=== PATIENT | female | born 2000 | race American Indian/Alaskan Native ===

== ENCOUNTER 2018-03-25 21:05 | Inpatient (IN) | payer BC, MEDICAID ==
[2018-03-25 23:19] LABS: Bilirubin,Urine NEG (Negative); Blood,Urine NEG (Negative); Color,Urine Yellow (Yellow); Mucus,Urine FEW /HPF; Protein,Urine <15 mg/dL mg/dL (Negative); Urobilinogen,Urine < 2.0 mg/dL (<2.0)
[2018-03-26] MEDS ORDERED: LACTATED RINGERS 1,000 ML IV ONE (00:22)
--- NOTE | 2018-03-26 01:36 | Ultrasound Report ---
FINAL REPORT EXAM: US OB BPP WO NON-STRESS HISTORY: Category 2 tracing TECHNIQUE: Transabdominal sonographic evaluation was performed of the gravid female pelvis with and without color Doppler imaging. Non-stress test was performed. PRIORS: None. FINDINGS: A single, intrauterine is present in cephalic presentation. Positive heart rate is identified at 155 beats per minute. There is several, cystic structures noted below the hemidiaphragm measuring up to 2.4 cm likely represented prominent loops of bowel. Average age by ultrasound criteria 33 weeks 0 days. Measurements: Last menstrual period: 06/21/2017. Tone: 2/2 breathin/2 movement: 2/2 Amniotic Fluid: 2/2 (20.7 Cm3) heart rate: 157 beats per minute IMPRESSION: Biophysical profile (12/14). breathing movements were absent or no episode of > /= 30 sec.
--- NOTE | 2018-03-26 01:40 | Ultrasound Report ---
FINAL REPORT EXAM: US OB LIMITED HISTORY: Category 2 tracing. TECHNIQUE: Transabdominal sonographic evaluation was performed of the gravid female pelvis with and without color Doppler imaging. Non-stress test was performed. PRIORS: None. FINDINGS: A single, intrauterine is present in cephalic presentation. Positive heart rate is identified at 155 beats per minute. There is several, cystic structures noted below the hemidiaphragm measuring up to 2.4 cm likely represented prominent loops of bowel. Average age by ultrasound criteria 33 weeks 0 days. Measurements: Last menstrual.: 08/06/2017. Tone: 2/2 breathing movements: 0/2 movement: 2/2 Amniotic Fluid: 2/2 (20.7 cm3) heart rate: 157 beats per minute IMPRESSION: Biophysical profile (12/14), no breathing movements were identified > /=30 seconds in 30 minutes.
[2018-03-26 02:14] LABS: Hematocrit 42.4 % (30.3-42.9); Hemoglobin 14.3 gm/dl (10.1-14.3); Mean Corpuscular HGB Conc 34 % (30-34); Mean Corpuscular Hemoglobin 30 pg (28-32); Mean Corpuscular Volume 88 fl (79-97); Platelet Count 163 K/mm3 (140-440); Red Blood Count 4.84 M/mm3 (3.65-5.03); Red Cell Distribution Width 12.3 % (13.2-15.2)
[2018-03-26] MEDS: PITOCin/NS 30 UNIT/500ML 30 UNITS/500 ML BAG IV SCH ×2 (02:24→07:51)
--- NOTE | 2018-03-26 03:22 | History and Physical Report ---
History of Present Illness Date of examination: 03/26/18 (Pt to Triage with c/o ctx) Date of admission: 03/26/18 01:13 History of present illness: Pt presented to Triage with c/o ctx. During monitoring there was a deep variable. BPP and AURE ordered BPP 12/14 AURE 5 SVE 2,70, -2 Decision to admit and augment. EDC Confirmation: 03/28/2018 Gestational Age: 9 4/7 weeks Past History : 1 Term Births: 0 Premature Births: 0 Living Children: 0 Para: 0 Mult. Births: 0 Prev : 0 Prev. attempt? 0 Aborta: 0 Elect. Ab: 0 Spont. Ab: 0 Ectopics: 0 Past Medical History: Asthma Past Surgical History: Tonsillectomy Family History Summary: Other family member - Has No Family History of Ovarvian Cancer - Entered On: Other family member - Has No Family History of Colon Cancer - Entered On: 2017 Other family member - Has No Family History of Breast Cancer - Entered On: 2017 Other family member - Has Family History of Hypertension - Entered On: 08/27/2017 Other family member - Has Family History of Diabetes - Entered On: 08/27/2017 Other family member - Has Family History of Arthritis - Entered On: 08/27/2017 Social History: Patient is single Karen Risk Factors: Smoked Tobacco Use: Never smoker HIV high-risk behavior: low risk Past Medical History Surgery (Non-insurance follow up rep): Tonsillectomy Abnormal PAP: negative LUIS ALFREDO Exposure: negative Infertility: negative Uterine Anomaly: negative Uterine Surgery (not C/S): negative Other Gynecologic Problems: negative Social Hx: Patient is single Karen Infection History Hx of STD: none HIV Risk Eval: low risk Hepatitis B Risk Eval: low risk Personal hx. of genital herpes: no Genetic History Congenital Heart Defect: Mom: no Dad: no Jenae Disease: Mom: no Dad: no Thalassemia Mom: no Dad: no Neural Tube Defect Mom: no Dad: no Down's Syndrome Mom: no Dad: no Al-Sachs Mom: no Dad: no Sickle Cell Disease/Trait Mom: no Dad: no Hemophilia Mom: no Dad: no Muscular Dystrophy Mom: no Dad: no Cystic Fibrosis Mom: no Dad: no Gaston Chorea Mom: no Dad: no Mental Retardation Mom: no Dad: no Fragile X Mom: no Dad: no Other Genetic/Chromosomal Disorder Mom: no Dad: no Child w/other defect Mom: no Dad: no Enviromental Exposures Xray Exposure: no Medication, drug, or alcohol use since LMP: no Chemical/Other Exposure: no Exposure to Cat Liter: no Hx of Parvovirus (Fifth Disease): no Active Medications (reviewed today): FORMULA 27-1 MG ORAL TABLET ( VIT-FE FUMARATE-FA) 1 po q day as directed Current Allergies (reviewed today): No known allergies Past History - Obstetrical History Expected Date of Delivery: 03/28/18 Actual Gestation: 39 Week(s) 5 Day(s) : 1 Para: 0 Hx # Term Pregnancies: 0 Number of Pregnancies: 0 Spontaneous Abortions: 0 Induced : 0 Number of Living Children: 0 Medications and Allergies Allergies Allergy/AdvReac Type Severity Reaction Status Date / Time No Known Allergies Allergy Verified 03/26/18 00:26 Home Medications Medication Instructions Recorded Confirmed Last Taken Type No Known Home Medications [No 03/26/18 03/26/18 Unknown History Reported Home Medications] Active Meds: Active Medications Oxytocin/Sodium Chloride (Pitocin/Ns 30 Unit/500ml) 30 units in 500 mls @ 2 mls /hr IV TITR ARCELIA; Protocol Last Admin: 03/26/18 02:24 Dose: 2 ml/hr, 2 mls/hr - Vital Signs Vital signs: Vital Signs Temp Pulse Resp BP 98.2 F 82 18 107/61 03/25/18 21:41 03/25/18 21:41 03/25/18 21:41 03/25/18 21:41 Temp Pulse Resp BP Pulse Ox 98.2 F 117 H 20 118/66 98 03/26/18 01:30 03/26/18 03:17 03/26/18 01:30 03/26/18 00:58 03/26/18 03:17 - Physical Exam Breasts: Positive: deferred Cardiovascular: Regular rate, Normal S1, Normal S2 Lungs: Positive: Normal air movement Abdomen: Positive: normal appearance, soft, normal bowel sounds. Negative: distention, tenderness Genitourinary (Female): Positive: normal external genitalia Vulva: both: normal Vagina: Positive: normal moisture. Negative: discharge Cervix: Negative: lesion, discharge Uterus: Positive: normal size, normal contour Adnexa: both: normal Anus/Rectum: Positive: normal perianal skin, heme negative. Negative: rectal mass, hemorrhoids Extremities: Deep Tendon Reflex Grade: Normal +2 - Obstetrical Uterine Contraction Monitor Mode: External Cervical Dilatation: 3 Cervical Effacement Percentage: 70 station: -2 Uterine Contraction Pattern: Regular Uterine Tone Measurement Phase: Resting Uterine Contraction Intensity: Mild Results Result Diagrams: 03/26/18 01:45 Abnormal lab results 03/25/18 03/26/18 Range/Units 21:19 01:45 RDW 12.3 L (13.2-15.2) % Urine WBC (Auto) 11.0 H (0.0-6.0) /HPF All other labs normal. GBS Positive HBsAg Screen Negative Negative *1 RPR Non Reactive Non Reactive *2 Rubella Antibodies, IgG 1.18 index Immune >0.99 *3 Non-immune <0.90 Equivocal 0.90 - 0.99 Immune >0.99 ABO Grouping O *4 Rh Factor Negative *5 Please note: Prior records for this patient's ABO / Rh type are not available for additional verification. Antibody Screen Negative Negative *6 WBC 7.6 x10E3/uL 3.4-10.8 *7 RBC 4.57 x10E6/uL 3.77-5.28 *8 Hemoglobin 13.0 g/dL 11.1-15.9 *9 Hematocrit 38.6 % 34.0-46.6 *10 MCV 85 fL 79-97 *11 MCH 28.4 pg 26.6-33.0 *12 MCHC 33.7 g/dL 31.5-35.7 *13 RDW 13.9 % 12.3-15.4 *14 Platelets 210 x10E3/uL 150-379 *15 Neutrophils 60 % Not Estab. *16 Lymphs 31 % Not Estab. *17 Monocytes 9 % Not Estab. *18 Eos 0 % Not Estab. *19 Basos 0 % Not Estab. *20 ! Immature Cells <No Reported Value> *21 Neutrophils (Absolute) 4.5 x10E3/uL 1.4-7.0 *22 Lymphs (Absolute) 2.4 x10E3/uL 0.7-3.1 *23 Monocytes(Absolute) 0.7 x10E3/uL 0.1-0.9 *24 Eos (Absolute) 0.0 x10E3/uL 0.0-0.4 *25 Baso (Absolute) 0.0 x10E3/uL 0.0-0.2 *26 ! Immature Granulocytes 0 % Not Estab. *27 ! Immature Grans (Abs) 0.0 x10E3/uL 0.0-0.1 *28 ! NRBC <No Reported Value> *29 Hematology Comments: <No Reported Value> *30 Tests: (2) Chlamydia/GC Amplification (781604) Chlamydia trachomatis, BRY Negative Negative *31 Neisseria gonorrhoeae, BRY Negative Negative *32 Tests: (3) Panel 631718 ([id number]) HIV Screen 4th Generation wRfx Non Reactive Non Reactive *33 Tests: (4) HCV Ab w/Rflx to Verification (686905) ! HCV Ab <0.1 s/co ratio 0.0-0.9 *34 Tests: (5) Comment: (071540) ! Comment: SPRCS *35 Non reactive HCV antibody screen is consistent with no HCV infection, unless recent infection is suspected or other evidence exists to indicate HCV infection. Tests: (6) Urine Culture, Routine (377808) Urine Culture, Routine Final report *36 Tests: (7) Result (353231) ! Result 1 No growth *37 Assessment and Plan Pt presented to Triage with c/o ctx. During monitoring there was a deep variable. BPP and AURE ordered BPP 12/14 AURE 5 SVE 2,70, -2 Decision to admit and augment. aware 18yo @ 39 weeks in early labor with oligo GBS+ Orders in EMR
[2018-03-26] MEDS ORDERED: BRETHINE ONE (03:50)
[2018-03-26] MEDS ORDERED: LACTATED RINGERS 1,000 ML ONE ×2 (03:51→04:59)
[2018-03-26] MEDS ORDERED: NARCAN 2 MG/2 ML IV PRN (04:02)
[2018-03-26] MEDS ORDERED: BRETHINE SUB-Q ONE (04:07)
--- NOTE | 2018-03-26 04:07 | Progress Note ---
Assessment and Plan Pt on left side SVE 4,70,0 Variable resolved. Pit off. IVFs for epidural bolus Subjective - Subjective Date of service: 03/26/18 (called urgently to room) Interval history: Pt presented to Triage with c/o ctx. During monitoring there was a deep variable. BPP and AURE ordered BPP / AURE 5 SVE 2,70, -2 Decision to admit and augment. Patient reports: movement normal Objective - Vital Signs Vital Signs: Vital Signs - 12hr 03/25/18 03/26/18 03/26/18 21:41 00:39 00:44 Temperature 98.2 F Pulse Rate 82 87 92 H Respiratory 18 Rate Blood Pressure 107/61 Blood Pressure 107/61 [Left] O2 Sat by Pulse 99 98 Oximetry 03/26/18 03/26/18 03/26/18 00:49 00:57 00:58 Temperature Pulse Rate 123 H 107 H 104 H Respiratory Rate Blood Pressure 118/66 Blood Pressure [Left] O2 Sat by Pulse 97 99 Oximetry 03/26/18 03/26/18 03/26/18 01:02 01:07 01:12 Temperature Pulse Rate 96 H 84 91 H Respiratory Rate Blood Pressure Blood Pressure [Left] O2 Sat by Pulse 97 96 97 Oximetry 03/26/18 03/26/18 03/26/18 01:17 01:22 01:27 Temperature Pulse Rate 93 H 91 H 98 H Respiratory Rate Blood Pressure Blood Pressure [Left] O2 Sat by Pulse 98 98 97 Oximetry 03/26/18 03/26/18 03/26/18 01:30 01:32 01:37 Temperature 98.2 F Pulse Rate 108 H 96 H Respiratory 20 Rate Blood Pressure Blood Pressure [Left] O2 Sat by Pulse 96 98 Oximetry 03/26/18 03/26/18 03/26/18 01:42 01:47 01:52 Temperature Pulse Rate 95 H 96 H 108 H Respiratory Rate Blood Pressure Blood Pressure [Left] O2 Sat by Pulse 98 97 99 Oximetry 03/26/18 03/26/18 03/26/18 01:57 02:02 02:07 Temperature Pulse Rate 103 H 95 H 93 H Respiratory Rate Blood Pressure Blood Pressure [Left] O2 Sat by Pulse 99 97 96 Oximetry 03/26/18 03/26/18 03/26/18 02:12 03:02 03:07 Temperature Pulse Rate 97 H 101 H 100 H Respiratory Rate Blood Pressure Blood Pressure [Left] O2 Sat by Pulse 99 99 97 Oximetry 03/26/18 03/26/18 03/26/18 03:12 03:17 03:22 Temperature Pulse Rate 111 H 117 H 104 H Respiratory Rate Blood Pressure Blood Pressure [Left] O2 Sat by Pulse 100 98 100 Oximetry 03/26/18 03/26/18 03/26/18 03:27 03:32 03:37 Temperature Pulse Rate 111 H 106 H 112 H Respiratory Rate Blood Pressure Blood Pressure [Left] O2 Sat by Pulse 99 99 98 Oximetry 03/26/18 03/26/18 03/26/18 03:42 03:47 03:52 Temperature Pulse Rate 116 H 112 H 114 H Respiratory Rate Blood Pressure Blood Pressure [Left] O2 Sat by Pulse 99 98 98 Oximetry 03/26/18 03:57 Temperature Pulse Rate 128 H Respiratory Rate Blood Pressure Blood Pressure [Left] O2 Sat by Pulse 99 Oximetry - Exam Breasts: deferred Cardiovascular: Regular rate Lungs: Normal air movement Abdomen: Present: normal appearance, soft. Absent: distention, tenderness Uterus: Present: normal FHR: auscultation normal, category 2 (deep variable decel; pitocin off) Uterine Contraction Monitor Mode: Internal Cervical Dilatation: 4 Cervical Effacement Percentage: 70 station: 0 Uterine Contraction Pattern: Regular Uterine Tone Measurement Phase: Resting Uterine Contraction Intensity: Moderate Extremities: normal Deep Tendon Reflex Grade: Normal +2 - Labs Labs: Abnormal Labs 03/25/18 03/26/18 21:19 01:45 RDW 12.3 L Urine WBC (Auto) 11.0 H Laboratory Results - last 24 hr 03/25/18 03/26/18 03/26/18 21:19 01:45 01:45 WBC 9.3 RBC 4.84 Hgb 14.3 Hct 42.4 MCV 88 MCH 30 MCHC 34 RDW 12.3 L Plt Count 163 Urine Color Yellow Urine Turbidity Slightly-cloudy Urine pH 6.0 Ur Specific [place] 1.013 Urine Protein <15 mg/dl Urine Glucose (UA) Neg Urine Ketones Neg Urine Blood Neg Urine Nitrite Neg Urine Bilirubin Neg Urine Urobilinogen < 2.0 Ur Leukocyte Esterase Mod Urine WBC (Auto) 11.0 H Urine RBC (Auto) 2.0 U Epithel Cells (Auto) 6.0 Urine Mucus Few Blood Type O NEGATIVE Antibody Screen Negative
[2018-03-26] MEDS: LACTATED RINGERS 1,000 ML IV SCH ×3 (04:52→07:38)
--- NOTE | 2018-03-26 04:54 | Anesthesia Consultation ---
Anesthesia Consult and Med Hx Date of service: 03/26/18 - Airway Anesthetic Teeth Evaluation: Good ROM Head & Neck: Adequate Mental/Hyoid Distance: Adequate Mallampati Class: Class II Intubation Access Assessment: Probably Good - Pulmonary Exam CTA: Yes - Cardiac Exam Cardiac Exam: RRR - Pre-Operative Health Status ASA Pre-Surgery Classification: ASA2 Proposed Anesthetic Plan: Epidural, Spinal - Pulmonary Hx Asthma: No COPD: No Hx Pneumonia: No - Cardiovascular System Hx Hypertension: No - Central Nervous System Hx Seizures: No Hx Psychiatric Problems: No - Endocrine Hx Renal Disease: No Hx End Stage Renal Disease: No Hx Hypothyroidism: No Hx Hyperthyroidism: No - Hematic Hx Anemia: No Hx Sickle Cell Disease: No - Other Systems Hx Alcohol Use: No
[2018-03-26] MEDS ORDERED: POLYCILLIN/NS 2 GM/100 ML 2 GM/100 ML BAG IV ONE ×2 (04:59)
[2018-03-26] MEDS ORDERED: fentaNYL-BUPIV 2 MCG/ML-0.125% 200 MCG/100 ML BAG EPIDURAL SCH (05:00)
--- NOTE | 2018-03-26 05:22 | Event Note ---
Date: 03/26/18 (comfortable with epidural) SVE 5,90,0 Pit @ 2mu will increase for ctx Re-eval as needed
--- NOTE | 2018-03-26 07:47 | Progress Note ---
Assessment and Plan pt tolerating labor well Comfortable with epidural Pit @ 6mu Anticipate delivery Subjective - Subjective Date of service: 03/26/18 (no c/o voiced) Interval history: Pt presented to Triage with c/o ctx. During monitoring there was a deep variable. BPP and AURE ordered BPP /8 AURE 5 SVE 2,70, -2 Decision to admit and augment. Patient reports: movement normal Objective - Vital Signs Vital Signs: Vital Signs - 12hr 03/25/18 03/26/18 03/26/18 21:41 00:39 00:44 Temperature 98.2 F Pulse Rate 82 87 92 H Respiratory 18 Rate Blood Pressure 107/61 Blood Pressure 107/61 [Left] O2 Sat by Pulse 99 98 Oximetry 03/26/18 03/26/18 03/26/18 00:49 00:57 00:58 Temperature Pulse Rate 123 H 107 H 104 H Respiratory Rate Blood Pressure 118/66 Blood Pressure [Left] O2 Sat by Pulse 97 99 Oximetry 03/26/18 03/26/18 03/26/18 01:02 01:07 01:12 Temperature Pulse Rate 96 H 84 91 H Respiratory Rate Blood Pressure Blood Pressure [Left] O2 Sat by Pulse 97 96 97 Oximetry 03/26/18 03/26/18 03/26/18 01:17 01:22 01:27 Temperature Pulse Rate 93 H 91 H 98 H Respiratory Rate Blood Pressure Blood Pressure [Left] O2 Sat by Pulse 98 98 97 Oximetry 03/26/18 03/26/18 03/26/18 01:30 01:32 01:37 Temperature 98.2 F Pulse Rate 108 H 96 H Respiratory 20 Rate Blood Pressure Blood Pressure [Left] O2 Sat by Pulse 96 98 Oximetry 03/26/18 03/26/18 03/26/18 01:42 01:47 01:52 Temperature Pulse Rate 95 H 96 H 108 H Respiratory Rate Blood Pressure Blood Pressure [Left] O2 Sat by Pulse 98 97 99 Oximetry 03/26/18 03/26/18 03/26/18 01:57 02:02 02:07 Temperature Pulse Rate 103 H 95 H 93 H Respiratory Rate Blood Pressure Blood Pressure [Left] O2 Sat by Pulse 99 97 96 Oximetry 03/26/18 03/26/18 03/26/18 02:12 03:02 03:07 Temperature Pulse Rate 97 H 101 H 100 H Respiratory Rate Blood Pressure Blood Pressure [Left] O2 Sat by Pulse 99 99 97 Oximetry 03/26/18 03/26/18 03/26/18 03:12 03:17 03:22 Temperature Pulse Rate 111 H 117 H 104 H Respiratory Rate Blood Pressure Blood Pressure [Left] O2 Sat by Pulse 100 98 100 Oximetry 03/26/18 03/26/18 03/26/18 03:27 03:32 03:37 Temperature Pulse Rate 111 H 106 H 112 H Respiratory Rate Blood Pressure Blood Pressure [Left] O2 Sat by Pulse 99 99 98 Oximetry 03/26/18 03/26/18 03/26/18 03:42 03:47 03:52 Temperature Pulse Rate 116 H 112 H 114 H Respiratory Rate Blood Pressure Blood Pressure [Left] O2 Sat by Pulse 99 98 98 Oximetry 03/26/18 03/26/18 03/26/18 03:57 04:02 04:07 Temperature Pulse Rate 128 H 141 H 142 H Respiratory Rate Blood Pressure Blood Pressure [Left] O2 Sat by Pulse 99 98 99 Oximetry 03/26/18 03/26/18 03/26/18 04:12 04:17 04:23 Temperature Pulse Rate 149 H 133 H 134 H Respiratory Rate Blood Pressure Blood Pressure [Left] O2 Sat by Pulse 98 98 96 Oximetry 03/26/18 03/26/18 03/26/18 04:28 04:33 04:35 Temperature Pulse Rate 128 H 135 H 131 H Respiratory Rate Blood Pressure 109/59 Blood Pressure [Left] O2 Sat by Pulse 99 99 Oximetry 03/26/18 03/26/18 03/26/18 04:37 04:38 04:39 Temperature Pulse Rate 125 H 125 H 122 H Respiratory Rate Blood Pressure 104/55 119/70 Blood Pressure [Left] O2 Sat by Pulse 98 Oximetry 03/26/18 03/26/18 03/26/18 04:41 04:43 04:44 Temperature Pulse Rate 118 H 132 H 125 H Respiratory Rate Blood Pressure 102/51 103/55 Blood Pressure [Left] O2 Sat by Pulse 96 Oximetry 03/26/18 03/26/18 03/26/18 04:45 04:47 04:48 Temperature Pulse Rate 117 H 109 H 110 H Respiratory Rate Blood Pressure 93/48 92/54 Blood Pressure [Left] O2 Sat by Pulse 98 Oximetry 03/26/18 03/26/1803/26/18 04:49 04:51 04:53 Temperature Pulse Rate 107 H 114 H 121 H Respiratory Rate Blood Pressure 90/46 83/47 93/51 Blood Pressure [Left] O2 Sat by Pulse 97 Oximetry 03/26/18 03/26/18 03/26/18 04:55 04:57 04:58 Temperature Pulse Rate 126 H 125 H 125 H Respiratory Rate Blood Pressure 103/55 112/53 Blood Pressure [Left] O2 Sat by Pulse 98 Oximetry 03/26/18 03/26/18 03/26/18 04:59 05:00 05:01 Temperature 98.6 F Pulse Rate 116 H 114 H Respiratory 18 Rate Blood Pressure 98/51 103/57 Blood Pressure [Left] O2 Sat by Pulse Oximetry 03/26/18 03/26/18 03/26/18 05:03 05:05 05:07 Temperature Pulse Rate 114 H 111 H 111 H Respiratory Rate Blood Pressure 108/58 110/57 111/57 Blood Pressure [Left] O2 Sat by Pulse 98 Oximetry 03/26/18 03/26/18 03/26/18 05:08 05:09 05:11 Temperature Pulse Rate 114 H 115 H 108 H Respiratory Rate Blood Pressure 114/59 110/59 Blood Pressure [Left] O2 Sat by Pulse 98 Oximetry 03/26/18 03/26/18 03/26/18 05:13 05:14 05:15 Temperature Pulse Rate 126 H 111 H 112 H Respiratory Rate Blood Pressure 125/58 114/58 Blood Pressure [Left] O2 Sat by Pulse 98 Oximetry 03/26/18 03/26/18 03/26/18 05:17 05:18 05:22 Temperature Pulse Rate 116 H 109 H 117 H Respiratory Rate Blood Pressure 111/58 Blood Pressure [Left] O2 Sat by Pulse 98 0 L Oximetry 03/26/18 03/26/18 03/26/18 05:23 05:28 05:33 Temperature Pulse Rate 116 H 117 H 116 H Respiratory Rate Blood Pressure 94/53 Blood Pressure [Left] O2 Sat by Pulse 100 100 100 Oximetry 03/26/18 03/26/18 03/26/18 05:38 05:43 05:48 Temperature Pulse Rate 111 H 110 H 102 H Respiratory Rate Blood Pressure Blood Pressure [Left] O2 Sat by Pulse 98 97 97 Oximetry 03/26/18 03/26/18 03/26/18 05:52 05:53 05:58 Temperature Pulse Rate 102 H 104 H 103 H Respiratory Rate Blood Pressure 90/45 Blood Pressure [Left] O2 Sat by Pulse 98 98 Oximetry 03/26/18 03/26/18 03/26/18 06:03 06:06 06:08 Temperature Pulse Rate 118 H 122 H 109 H Respiratory Rate Blood Pressure 128/60 Blood Pressure [Left] O2 Sat by Pulse 100 98 Oximetry 03/26/18 03/26/18 03/26/18 06:13 06:18 06:21 Temperature Pulse Rate 105 H 104 H 101 H Respiratory Rate Blood Pressure 105/52 Blood Pressure [Left] O2 Sat by Pulse 97 96 Oximetry 03/26/18 03/26/18 03/26/18 06:23 06:28 06:33 Temperature Pulse Rate 107 H 101 H 109 H Respiratory Rate Blood Pressure Blood Pressure [Left] O2 Sat by Pulse 96 97 97 Oximetry 03/26/18 03/26/18 03/26/18 06:36 06:38 06:43 Temperature Pulse Rate 105 H 106 H 107 H Respiratory Rate Blood Pressure 101/54 Blood Pressure [Left] O2 Sat by Pulse 98 97 Oximetry 03/26/18 03/26/18 03/26/18 06:48 06:52 06:53 Temperature Pulse Rate 100 H 111 H 112 H Respiratory Rate Blood Pressure 112/55 Blood Pressure [Left] O2 Sat by Pulse 97 99 Oximetry 03/26/18 03/26/18 03/26/18 06:58 07:03 07:06 Temperature Pulse Rate 109 H 110 H 103 H Respiratory Rate Blood Pressure 109/58 Blood Pressure [Left] O2 Sat by Pulse 98 99 Oximetry 03/26/18 03/26/18 03/26/18 07:08 07:13 07:18 Temperature Pulse Rate 109 H 115 H 126 H Respiratory Rate Blood Pressure Blood Pressure [Left] O2 Sat by Pulse 99 99 99 Oximetry 03/26/18 03/26/18 03/26/18 07:22 07:23 07:28 Temperature Pulse Rate 116 H 116 H 118 H Respiratory Rate Blood Pressure 135/63 Blood Pressure [Left] O2 Sat by Pulse 99 98 Oximetry 03/26/18 03/26/18 03/26/18 07:33 07:37 07:38 Temperature Pulse Rate 118 H 105 H 104 H Respiratory 18 Rate Blood Pressure 98/53 Blood Pressure 98/53 [Left] O2 Sat by Pulse 98 97 98 Oximetry 03/26/18 07:43 Temperature Pulse Rate 112 H Respiratory Rate Blood Pressure Blood Pressure [Left] O2 Sat by Pulse 96 Oximetry - Exam Breasts: deferred Cardiovascular: Regular rate Lungs: Normal air movement Abdomen: Present: normal appearance, soft. Absent: distention, tenderness Uterus: Present: normal FHR: auscultation normal, category 1 Uterine Contraction Monitor Mode: Internal Cervical Dilatation: 8 Cervical Effacement Percentage: 100 station: 0 Uterine Contraction Pattern: Regular Uterine Tone Measurement Phase: Resting Uterine Contraction Intensity: Moderate Extremities: normal Deep Tendon Reflex Grade: Normal +2 - Labs Labs: Abnormal Labs 03/25/18 03/26/18 21:19 01:45 RDW 12.3 L Urine WBC (Auto) 11.0 H Laboratory Results - last 24 hr 03/25/18 03/26/18 03/26/18 21:19 01:45 01:45 WBC 9.3 RBC 4.84 Hgb 14.3 Hct 42.4 MCV 88 MCH 30 MCHC 34 RDW 12.3 L Plt Count 163 Urine Color Yellow Urine Turbidity Slightly-cloudy Urine pH 6.0 Ur Specific [place] 1.013 Urine Protein <15 mg/dl Urine Glucose (UA) Neg Urine Ketones Neg Urine Blood Neg Urine Nitrite Neg Urine Bilirubin Neg Urine Urobilinogen < 2.0 Ur Leukocyte Esterase Mod Urine WBC (Auto) 11.0 H Urine RBC (Auto) 2.0 U Epithel Cells (Auto) 6.0 Urine Mucus Few Blood Type O NEGATIVE Antibody Screen Negative
[2018-03-26] MEDS ORDERED: PITOCin/NS 20 UNIT/1000ML DRIP 20,000 MILLIUNITS/1,000 ML BAG IV ONE (07:52)
[2018-03-26] MEDS ORDERED: AMPICILLIN/NS 1 GM/50 ML 1 GM/50 ML BAG IV SCH (09:00)
--- NOTE | 2018-03-26 09:21 | Progress Note ---
Assessment and Plan Will start pushing - Patient Problems (1) 39 weeks gestation of Current Visit: Yes Status: Acute (2) Active labor Current Visit: Yes Status: Acute (3) Group B Streptococcus carrier state affecting Current Visit: Yes Status: Acute Subjective - Subjective Date of service: 03/26/18 Principal diagnosis: Laboring Patient reports: new complaints (rectal pressure), movement normal Objective - Vital Signs Vital Signs: Vital Signs - 12hr 03/25/18 03/26/18 03/26/18 21:41 00:39 00:44 Temperature 98.2 F Pulse Rate 82 87 92 H Respiratory 18 Rate Blood Pressure 107/61 Blood Pressure 107/61 [Left] O2 Sat by Pulse 99 98 Oximetry 03/26/18 03/26/18 03/26/18 00:49 00:57 00:58 Temperature Pulse Rate 123 H 107 H 104 H Respiratory Rate Blood Pressure 118/66 Blood Pressure [Left] O2 Sat by Pulse 97 99 Oximetry 03/26/18 03/26/18 03/26/18 01:02 01:07 01:12 Temperature Pulse Rate 96 H 84 91 H Respiratory Rate Blood Pressure Blood Pressure [Left] O2 Sat by Pulse 97 96 97 Oximetry 03/26/18 03/26/18 03/26/18 01:17 01:22 01:27 Temperature Pulse Rate 93 H 91 H 98 H Respiratory Rate Blood Pressure Blood Pressure [Left] O2 Sat by Pulse 98 98 97 Oximetry 03/26/18 03/26/18 03/26/18 01:30 01:32 01:37 Temperature 98.2 F Pulse Rate 108 H 96 H Respiratory 20 Rate Blood Pressure Blood Pressure [Left] O2 Sat by Pulse 96 98 Oximetry 03/26/18 03/26/18 03/26/18 01:42 01:47 01:52 Temperature Pulse Rate 95 H 96 H 108 H Respiratory Rate Blood Pressure Blood Pressure [Left] O2 Sat by Pulse 98 97 99 Oximetry 03/26/18 03/26/18 03/26/18 01:57 02:02 02:07 Temperature Pulse Rate 103 H 95 H 93 H Respiratory Rate Blood Pressure Blood Pressure [Left] O2 Sat by Pulse 99 97 96 Oximetry 03/26/18 03/26/18 03/26/18 02:12 03:02 03:07 Temperature Pulse Rate 97 H 101 H 100 H Respiratory Rate Blood Pressure Blood Pressure [Left] O2 Sat by Pulse 99 99 97 Oximetry 03/26/18 03/26/18 03/26/18 03:12 03:17 03:22 Temperature Pulse Rate 111 H 117 H 104 H Respiratory Rate Blood Pressure Blood Pressure [Left] O2 Sat by Pulse 100 98 100 Oximetry 03/26/18 03/26/18 03/26/18 03:27 03:32 03:37 Temperature Pulse Rate 111 H 106 H 112 H Respiratory Rate Blood Pressure Blood Pressure [Left] O2 Sat by Pulse 99 99 98 Oximetry 03/26/18 03/26/18 03/26/18 03:42 03:47 03:52 Temperature Pulse Rate 116 H 112 H 114 H Respiratory Rate Blood Pressure Blood Pressure [Left] O2 Sat by Pulse 99 98 98 Oximetry 03/26/18 03/26/18 03/26/18 03:57 04:02 04:07 Temperature Pulse Rate 128 H 141 H 142 H Respiratory Rate Blood Pressure Blood Pressure [Left] O2 Sat by Pulse 99 98 99 Oximetry 03/26/18 03/26/18 03/26/18 04:12 04:17 04:23 Temperature Pulse Rate 149 H 133 H 134 H Respiratory Rate Blood Pressure Blood Pressure [Left] O2 Sat by Pulse 98 98 96 Oximetry 03/26/18 03/26/18 03/26/18 04:28 04:33 04:35 Temperature Pulse Rate 128 H 135 H 131 H Respiratory Rate Blood Pressure 109/59 Blood Pressure [Left] O2 Sat by Pulse 99 99 Oximetry 03/26/18 03/26/18 03/26/18 04:37 04:38 04:39 Temperature Pulse Rate 125 H 125 H 122 H Respiratory Rate Blood Pressure 104/55 119/70 Blood Pressure [Left] O2 Sat by Pulse 98 Oximetry 03/26/18 03/26/18 03/26/18 04:41 04:43 04:44 Temperature Pulse Rate 118 H 132 H 125 H Respiratory Rate Blood Pressure 102/51 103/55 Blood Pressure [Left] O2 Sat by Pulse 96 Oximetry 03/26/18 03/26/18 03/26/18 04:45 04:47 04:48 Temperature Pulse Rate 117 H 109 H 110 H Respiratory Rate Blood Pressure 93/48 92/54 Blood Pressure [Left] O2 Sat by Pulse 98 Oximetry 03/26/18 03/26/18 03/26/18 04:49 04:51 04:53 Temperature Pulse Rate 107 H 114 H 121 H Respiratory Rate Blood Pressure 90/46 83/47 93/51 Blood Pressure [Left] O2 Sat by Pulse 97 Oximetry 03/26/18 03/26/18 03/26/18 04:55 04:57 04:58 Temperature Pulse Rate 126 H 125 H 125 H Respiratory Rate Blood Pressure 103/55 112/53 Blood Pressure [Left] O2 Sat by Pulse 98 Oximetry 03/26/18 03/26/18 03/26/18 04:59 05:00 05:01 Temperature 98.6 F Pulse Rate 116 H 114 H Respiratory 18 Rate Blood Pressure 98/51 103/57 Blood Pressure [Left] O2 Sat by Pulse Oximetry 03/26/18 03/26/18 03/26/18 05:03 05:05 05:07 Temperature Pulse Rate 114 H 111 H 111 H Respiratory Rate Blood Pressure 108/58 110/57 111/57 Blood Pressure [Left] O2 Sat by Pulse 98 Oximetry 03/26/18 03/26/18 03/26/18 05:08 05:09 05:11 Temperature Pulse Rate 114 H 115 H 108 H Respiratory Rate Blood Pressure 114/59 110/59 Blood Pressure [Left] O2 Sat by Pulse 98 Oximetry 03/26/18 03/26/18 03/26/18 05:13 05:14 05:15 Temperature Pulse Rate 126 H 111 H 112 H Respiratory Rate Blood Pressure 125/58 114/58 Blood Pressure [Left] O2 Sat by Pulse 98 Oximetry 03/26/18 03/26/18 03/26/18 05:17 05:18 05:22 Temperature Pulse Rate 116 H 109 H 117 H Respiratory Rate Blood Pressure 111/58 Blood Pressure [Left] O2 Sat by Pulse 98 0 L Oximetry 03/26/18 03/26/18 03/26/18 05:23 05:28 05:33 Temperature Pulse Rate 116 H 117 H 116 H Respiratory Rate Blood Pressure 94/53 Blood Pressure [Left] O2 Sat by Pulse 100 100 100 Oximetry 03/26/18 03/26/18 03/26/18 05:38 05:43 05:48 Temperature Pulse Rate 111 H 110 H 102 H Respiratory Rate Blood Pressure Blood Pressure [Left] O2 Sat by Pulse 98 97 97 Oximetry 03/26/18 03/26/18 03/26/18 05:52 05:53 05:58 Temperature Pulse Rate 102 H 104 H 103 H Respiratory Rate Blood Pressure 90/45 Blood Pressure [Left] O2 Sat by Pulse 98 98 Oximetry 03/26/18 03/26/18 03/26/18 06:03 06:06 06:08 Temperature Pulse Rate 118 H 122 H 109 H Respiratory Rate Blood Pressure 128/60 Blood Pressure [Left] O2 Sat by Pulse 100 98 Oximetry 03/26/18 03/26/18 03/26/18 06:13 06:18 06:21 Temperature Pulse Rate 105 H 104 H 101 H Respiratory Rate Blood Pressure 105/52 Blood Pressure [Left] O2 Sat by Pulse 97 96 Oximetry 03/26/18 03/26/18 03/26/18 06:23 06:28 06:33 Temperature Pulse Rate 107 H 101 H 109 H Respiratory Rate Blood Pressure Blood Pressure [Left] O2 Sat by Pulse 96 97 97 Oximetry 03/26/18 03/26/18 03/26/18 06:36 06:38 06:43 Temperature Pulse Rate 105 H 106 H 107 H Respiratory Rate Blood Pressure 101/54 Blood Pressure [Left] O2 Sat by Pulse 98 97 Oximetry 03/26/18 03/26/18 03/26/18 06:48 06:52 06:53 Temperature Pulse Rate 100 H 111 H 112 H Respiratory Rate Blood Pressure 112/55 Blood Pressure [Left] O2 Sat by Pulse 97 99 Oximetry 03/26/18 03/26/18 03/26/18 06:58 07:03 07:06 Temperature Pulse Rate 109 H 110 H 103 H Respiratory Rate Blood Pressure 109/58 Blood Pressure [Left] O2 Sat by Pulse 98 99 Oximetry 03/26/18 03/26/18 03/26/18 07:08 07:13 07:18 Temperature Pulse Rate 109 H 115 H 126 H Respiratory Rate Blood Pressure Blood Pressure [Left] O2 Sat by Pulse 99 99 99 Oximetry 03/26/18 03/26/18 03/26/18 07:22 07:23 07:28 Temperature Pulse Rate 116 H 116 H 118 H Respiratory Rate Blood Pressure 135/63 Blood Pressure [Left] O2 Sat by Pulse 99 98 Oximetry 03/26/18 03/26/18 03/26/18 07:33 07:37 07:38 Temperature Pulse Rate 118 H 105 H 104 H Respiratory 18 Rate Blood Pressure 98/53 Blood Pressure 98/53 [Left] O2 Sat by Pulse 98 97 98 Oximetry 03/26/18 03/26/18 03/26/18 07:43 07:48 07:51 Temperature Pulse Rate 112 H 101 H 112 H Respiratory Rate Blood Pressure 92/53 Blood Pressure [Left] O2 Sat by Pulse 96 96 Oximetry 03/26/18 03/26/18 03/26/18 07:53 07:58 08:03 Temperature Pulse Rate 106 H 99 H 100 H Respiratory Rate Blood Pressure Blood Pressure [Left] O2 Sat by Pulse 97 96 96 Oximetry 03/26/18 03/26/18 03/26/18 08:06 08:08 08:13 Temperature Pulse Rate 105 H 105 H 105 H Respiratory Rate Blood Pressure 86/47 Blood Pressure [Left] O2 Sat by Pulse 96 96 Oximetry 03/26/18 03/26/18 03/26/18 08:18 08:21 08:23 Temperature Pulse Rate 106 H 100 H 99 H Respiratory Rate Blood Pressure 86/50 Blood Pressure [Left] O2 Sat by Pulse 97 96 Oximetry 03/26/18 03/26/18 03/26/18 08:28 08:33 08:38 Temperature Pulse Rate 103 H 99 H 108 H Respiratory Rate Blood Pressure 97/50 Blood Pressure [Left] O2 Sat by Pulse 96 97 100 Oximetry 03/26/18 03/26/18 03/26/18 08:43 08:48 08:52 Temperature Pulse Rate 109 H 121 H 126 H Respiratory Rate Blood Pressure 124/69 Blood Pressure [Left] O2 Sat by Pulse 98 99 Oximetry 03/26/18 08:53 Temperature Pulse Rate 142 H Respiratory Rate Blood Pressure Blood Pressure [Left] O2 Sat by Pulse 99 Oximetry - Exam Breasts: normal Cardiovascular: Regular rate Lungs: Clear to auscultation, Normal air movement Abdomen: Present: normal appearance, soft Vulva: both: normal Uterus: Present: normal FHR: category 2 Cervical Dilatation: 10 Cervical Effacement Percentage: 100 station: +2 Uterine Contraction Frequency (min): 2-3 Uterine Contraction Pattern: Regular Uterine Tone Measurement Phase: Contraction Uterine Contraction Intensity: Strong/Firm Extremities: normal - Labs Labs: Abnormal Labs 03/25/18 03/26/18 21:19 01:45 RDW 12.3 L Urine WBC (Auto) 11.0 H Laboratory Results - last 24 hr 09/03/26/18 03/26/18 21:19 01:45 01:45 WBC 9.3 RBC 4.84 Hgb 14.3 Hct 42.4 MCV 88 MCH 30 MCHC 34 RDW 12.3 L Plt Count 163 Urine Color Yellow Urine Turbidity Slightly-cloudy Urine pH 6.0 Ur Specific [place] 1.013 Urine Protein <15 mg/dl Urine Glucose (UA) Neg Urine Ketones Neg Urine Blood Neg Urine Nitrite Neg Urine Bilirubin Neg Urine Urobilinogen < 2.0 Ur Leukocyte Esterase Mod Urine WBC (Auto) 11.0 H Urine RBC (Auto) 2.0 U Epithel Cells (Auto) 6.0 Urine Mucus Few Blood Type O NEGATIVE Antibody Screen Negative
--- NOTE | 2018-03-26 09:57 | Event Note ---
Date: 03/26/18 FHT does not tolerating pushing at this time, baby is OP and patient has heavy epidural. epidural infusion reduced by half, patient turned to RLP with left leg placed in stirrup. Will allow time to labor down further.
--- NOTE | 2018-03-26 11:06 | Procedure Note ---
OB Delivery Note - Delivery Date of Delivery: 03/26/18 ( Female) Janitor Head: AKIL BATISTA Estimated blood loss: 200cc - Vaginal Delivery presentation: vertex Delivery position: OA (long arc, restituted to OP) Intrapartum events: other(please specify) (oligo, BPP 12/14) Delivery induction: oxytocin Delivery augmentation: rupture of membranes, pitocin Delivery monitor: internal FHT, internal uterine Route of delivery: Delivery placenta: spontaneous Delivery cord: 3 umbilical vessels Episiotomy: none Delivery laceration: none Anesthesia: epidural Delivery comments: Female infant del over intact perineum, placed skin to skin, 3 vessel clamped and cut, cord blood collected. Placenta del intact and complete. Pit to IVF. no lacerations repair. EBL 200, apgars 8/9. Mother and remain LDR stable. - A at 1 minute: 8 at 5 minutes: 9 Infant Gender: Female
[2018-03-26] MEDS ORDERED: ZOFRAN IV PRN (14:21)
[2018-03-26] MEDS ORDERED: TYLENOL PO PRN (14:21)
[2018-03-26] MEDS ORDERED: LANSINOH TP PRN (14:21)
[2018-03-26] MEDS ORDERED: BENADRYL PO PRN (14:21)
[2018-03-26] MEDS ORDERED: MILK OF MAGNESIA PO PRN (14:21)
[2018-03-26] MEDS ORDERED: PHENERGAN PO PRN (14:21)
[2018-03-26] MEDS ORDERED: TUCKS PAD TP PRN (14:21)
[2018-03-26] MEDS ORDERED: SODIUM CHLORIDE FLUSH SYRINGE 10 ML IV NR (14:21)
[2018-03-26] MEDS ORDERED: DULCOLAX PR PRN (14:21)
[2018-03-26] MEDS: MOTRIN PO SCH ×2 (16:38→23:15)
[2018-03-26 23:04] LABS: Hematocrit 36.5 % (30.3-42.9); Hemoglobin 12.2 gm/dl (10.1-14.3)
[2018-03-27] MEDS: MOTRIN PO SCH ×2 (05:17→12:22)
--- NOTE | 2018-03-27 07:15 | Discharge Summary ---
Providers - Providers Date of Admission: 03/26/18 01:13 Date of discharge: 03/27/18 (pt requesting d/c) Attending physician: LEIGH RYAN Primary care physician: LEIGH RYAN Hospitalization Reason for admission: active labor, other (BPP 6/8 AURE 5) Delivery: Episiotomy: none Laceration: none Incision: normal Other procedures: none complications: none Discharge diagnosis: IUP at term delivered baby: female Hospital course: uncomplicated vaginal delivery Pt w/o complaint VSS FF below umb Lochia small Perineum intact H&H stable Asymptomatic anemia. Doing well s/p vag delivery P: d/c today with instructions RTO 4 weeks PP care. Condition at discharge: Good Disposition: DC-01 TO HOME OR SELFCARE - Discharge Diagnoses (1) (normal spontaneous vaginal delivery) Status: Acute Comment: RTO 4 weeks PP care Plan - Provider Discharge Summary Activity: routine, no sex for 6 weeks, no heavy lifting 4 weeks, no strenuous exercise Diet: routine Instructions: routine Additional instructions: [] Smoking cessation referral if applicable(refer to patient education folder for contact #) [] Refer to [employer] Booklet Call your doctor immediately for: * Fever > 100.5 * Heavy vaginal bleeding ( >1 pad per hour) * Severe persistent headache * Shortness of breath * Reddened, hot, painful area to leg or breast * Drainage or odor from incision. * Keep incision clean and dry at all times and follow doctor's instructions regarding bathing/showering - Follow up plan Follow up: LEIGH RYAN MD [Primary Care Provider] - 04/25/18 (Congratulations! Please call [phone] to schedule your care in 4 weeks. Take Motrin for any cramping, Tylenol for headache. Call with concerns.)
[2018-03-27] MEDS ORDERED: PRENATAL VITAMIN PO SCH (10:00)
[2018-03-27] MEDS ORDERED: BOOSTRIX IM ONE (10:59)
[2018-03-27 17:59] VITALS: BP 114/71
== END 2018-03-27 15:58 | disposition home or self-care (01) | DRG 775 ==
LOC: TRG 21:05 → LD 03-26 01:13 → OB 03-26 12:55
PROVIDERS: ADMIT Obstetrics & Gynecology; ATTEND Obstetrics & Gynecology
PROC: 10E0XZZ Delivery of Products of Conception, External Approach (ICD-10-PCS; principal; 2018-03-26)
PROC: 3E033VJ Introduction of Other Hormone into Peripheral Vein, Percutaneous Approach (ICD-10-PCS; 2018-03-26)
PROC: 3E0R3BZ Introduction of Anesthetic Agent into Spinal Canal, Percutaneous Approach (ICD-10-PCS; 2018-03-26)
PROC: 00HU33Z Insertion of Infusion Device into Spinal Canal, Percutaneous Approach (ICD-10-PCS; 2018-03-26)
PROC: 3E0234Z Introduction of Serum, Toxoid and Vaccine into Muscle, Percutaneous Approach (ICD-10-PCS; 2018-03-27)
DX: O41.03X0 Oligohydramnios, third trimester, not applicable or unspecified (principal); O99.824 Streptococcus B carrier state complicating childbirth; Z3A.39 39 weeks gestation of pregnancy; Z37.0 Single live birth; Z23 Encounter for immunization; O99.02 Anemia complicating childbirth; D64.9 Anemia, unspecified
CPT/HCPCS: 36415; 76815; 76819; 81001; 85014; 85018; 85027; 86592; 86850; 86900; 86901; 99211; A6250; G0463; J0290; J2590; J3105; J7120

== ENCOUNTER 2020-07-27 13:43 | Emergency (ER) | payer BC ==
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
[2020-07-27] MEDS ORDERED: LIDOCAINE-MPF (1%) 10 MG/1 ML VIAL 5 ML INFILTRATI ONE (17:17)
[2020-07-27 18:21] LABS: Bilirubin,Urine NEG (Negative); Blood,Urine SM (Negative); Color,Urine Yellow (Yellow); Mucus,Urine FEW /HPF; Protein,Urine <15 mg/dL mg/dL (Negative); Urobilinogen,Urine < 2.0 mg/dL (<2.0)
[2020-07-27 18:30] LABS: HCG Qualitative,Urine Negative (Negative)
[2020-07-27 19:28] VITALS: BP 138/77
== END 2020-07-27 19:28 | disposition home or self-care (01) ==
LOC: ED 13:43
DX: N76.0 Acute vaginitis (principal); R10.2 Pelvic and perineal pain; K62.89 Other specified diseases of anus and rectum; B96.89 Other specified bacterial agents as the cause of diseases classified elsewhere; Z79.899 Other long term (current) drug therapy
CPT/HCPCS: 81001; 81025; 87210; 87591; 96372; 99283; J0696

== ENCOUNTER 2021-03-19 10:42 | Emergency (ER) | payer BC ==
[2021-03-19 12:35] VITALS: BP 143/76
[2021-03-19] MEDS ORDERED: ACETAMINOPHEN 325 MG TAB PO ONE (14:50)
[2021-03-19] MEDS ORDERED: dexAMETHasone 20 MG/5 ML VIAL IM ONE (14:50)
[2021-03-19] MEDS ORDERED: IPRATROPIUM/ALBUTEROL SULFATE 3 ML AMPUL.NEB IH ONE (14:50)
--- NOTE | 2021-03-19 15:15 | Emergency Department Report ---
- General Chief Complaint: Upper Respiratory Infection Stated Complaint: HEARING LOSS/EAR PAIN Time Seen by Provider: 03/19/21 14:49 Source: patient Mode of arrival: Ambulatory Limitations: No Limitations - History of Present Illness Initial Comments: Patient is a 21-year-old female presents emergency room complaints of URI symptoms that began 2 weeks ago. She has associated bilateral ear pain, muffled hearing, sinus pressure, congestion, rhinorrhea, cough, shortness of breath, wheezing, sore throat. She states that she got tested for COVID-19 and reports it was negative. She states that her daughter is sick and was diagnosed with strep throat. She denies any chest pain, nausea, vomiting, diarrhea past medical history of asthma and herpes. She states that she has been using her inhaler. No allergies to medications. She is currently on her menstrual cycle. - Related Data Previous Rx's Medication Instructions Recorded Last Taken Type predniSONE [Deltasone] 40 mg PO QDAY 5 Days #10 tab 01/08/20 Unknown Rx Acyclovir 400 mg PO Q8H #21 tablet 07/27/20 Unknown Rx Doxycycline Hyclate [Doxycycline 100 mg PO Q12HR #14 tab 07/27/20 Unknown Rx Hyclate TAB] metroNIDAZOLE [Flagyl] 500 mg PO Q12HR #14 tab 07/27/20 Unknown Rx Albuterol Sulfate [Proventil Hfa] 1 - 2 puff IH TID PRN #1 hfa.aer.ad 03/19/21 Unknown Rx Amoxicillin/Potassium Clav 1 each PO BID 10 Days #20 tablet 03/19/21 Unknown Rx [Augmentin 875-125 Tablet] Azithromycin [Zithromax] 250 mg PO QDAY 5 Days #6 tablet 03/19/21 Unknown Rx predniSONE [Deltasone] 40 mg PO DAILY 5 Days #10 tablet 03/19/21 Unknown Rx Allergies Allergy/AdvReac Type Severity Reaction Status Date / Time No Known Allergies Allergy Verified 03/19/21 12:35 ED Review of Systems ROS: Stated complaint: HEARING LOSS/EAR PAIN Other details as noted in HPI Comment: All other systems reviewed and negative ED Past Medical Hx - Past Medical History Hx Hypertension: No Hx Congestive Heart Failure: No Hx Diabetes: No Hx Deep Vein Thrombosis: No Hx Renal Disease: No Hx Sickle Cell Disease: No Hx Seizures: No Hx Asthma: No Hx COPD: No Hx HIV: No Additional medical history: HPV - Social History Smoking Status: Never Smoker Substance Use Type: None - Medications Home Medications: Home Medications Medication Instructions Recorded Confirmed Last Taken Type predniSONE [Deltasone] 40 mg PO QDAY 5 Days #10 tab 01/08/20 Unknown Rx Acyclovir 400 mg PO Q8H #21 tablet 07/27/20 Unknown Rx Doxycycline Hyclate [Doxycycline 100 mg PO Q12HR #14 tab 07/27/20 Unknown Rx Hyclate TAB] metroNIDAZOLE [Flagyl] 500 mg PO Q12HR #14 tab 07/27/20 Unknown Rx Albuterol Sulfate [Proventil Hfa] 1 - 2 puff IH TID PRN #1 hfa.aer.ad 03/19/21 Unknown Rx Amoxicillin/Potassium Clav 1 each PO BID 10 Days #20 tablet 03/19/21 Unknown Rx [Augmentin 875-125 Tablet] Azithromycin [Zithromax] 250 mg PO QDAY 5 Days #6 tablet 03/19/21 Unknown Rx predniSONE [Deltasone] 40 mg PO DAILY 5 Days #10 tablet 03/19/21 Unknown Rx ED Physical Exam - General Limitations: No Limitations General appearance: alert, in no apparent distress - Head Head exam: Present: atraumatic, normocephalic - Eye Eye exam: Present: normal appearance - ENT ENT exam: Present: normal orophraynx, mucous membranes moist, other (right TM is erytehmatous with bulging and purulence behind the TM, right canal is normal, left TM and canal are normal ) - Respiratory Respiratory exam: Present: wheezes (bilaterally), rhonchi, decreased breath sounds, prolonged expiratory. Absent: respiratory distress, rales, stridor, chest wall tenderness, accessory muscle use - Cardiovascular Cardiovascular Exam: Present: regular rate, normal rhythm, normal heart sounds. Absent: systolic murmur, diastolic murmur, rubs, gallop - Neurological Exam Neurological exam: Present: alert, oriented X3 - Psychiatric Psychiatric exam: Present: normal affect, normal mood - Skin Skin exam: Present: warm, dry, intact ED Course Vital Signs 03/19/21 03/19/21 12:32 16:32 Temperature 100.7 F H 98.9 F Pulse Rate 100 H 102 H Respiratory 18 Rate Blood Pressure 143/76 [Left] O2 Sat by Pulse 99 100 Oximetry ED Medical Decision Making - Lab Data Vital Signs 03/19/21 03/19/21 12:32 16:32 Temperature 100.7 F H 98.9 F Pulse Rate 100 H 102 H Respiratory 18 Rate Blood Pressure 143/76 [Left] O2 Sat by Pulse 99 100 Oximetry - Radiology Data Radiology results: report reviewed Ordering Physician: TAMMY PRESLEY Date of Service: 03/19/21 Procedure(s): XR chest routine 2V Accession Number(s): [id number] cc: TAMMY PRESLEY Fluoro Time In Minutes: CHEST 2 VIEWS INDICATION / CLINICAL INFORMATION: cough, fever, wheezing. COMPARISON: None available. FINDINGS: SUPPORT DEVICES: None. HEART / MEDIASTINUM: No significant abnormality. LUNGS / PLEURA: Mild interstitial pulmonary opacities are present bilaterally. No areas of consolidation. No pleural effusion. No pneumothorax. ADDITIONAL FINDINGS: No significant additional findings. IMPRESSION: 1. Mild bilateral interstitial pulmonary opacities. The overall appearance is certainly concerning for viral pneumonia and clinical correlation is recommended. Signer Name: Iman Solares MD Signed: 03/19/2021 4:06 PM Workstation Name: [id number] Transcribed By: Dictated By: Iman Solares MD Electronically Authenticated By: Iman Solares MD Signed Date/Time: 03/19/21 160 DD/ 160 TD/TT: - Medical Decision Making Patient is a 21-year-old female presents emergency room complaints of URI symptoms that began 2 weeks ago. She has associated bilateral ear pain, muffled hearing, sinus pressure, congestion, rhinorrhea, cough, shortness of breath, wheezing, sore throat. She states that she got tested for COVID-19 and reports it was negative. She states that her daughter is sick and was diagnosed with strep throat. She denies any chest pain, nausea, vomiting, diarrhea past medical history of asthma and herpes. She states that she has been using her inhaler. No allergies to medications. She is currently on her menstrual cycle. Initial vitals with fever which improved upon repeat. On exam:right TM is erytehmatous with bulging and purulence behind the TM, right canal is normal, left TM and canal are normal, wheezing bilaterally, prolonged expiratory phase, decreased breath sounds. Chest x-ray: 1. Mild bilateral interstitial pulmonary opacities. The overall appearance is certainly concerning for viral pneumonia and clinical correlation is recommended. X-ray findings could represent COVID-19 pneumonia. Patient given prescription for medications. Advised patient Please take medication as prescribed. Increase your fluid intake. Follow-up with a primary care doctor. Return to emergency room for any new or worse symptoms. Recommend for you to self quarantine for 10 days from onset of your symptoms. Critical care attestation.: If time is entered above; I have spent that time in minutes in the direct care of this critically ill patient, excluding procedure time. ED Disposition Clinical Impression: Suspected COVID-19 virus infection Otitis media Qualifiers: Otitis media type: suppurative Chronicity: acute Laterality: right Recurrence: non-recurrent Spontaneous tympanic membrane rupture: without spontaneous rupture Qualified Code(s): H66.001 - Acute suppurative otitis media without spontaneous rupture of ear drum, right ear Pneumonia Qualifiers: Pneumonia type: due to unspecified organism Laterality: bilateral Lung location: unspecified part of lung Qualified Code(s): J18.9 - Pneumonia, unspecified organism Disposition: 01 HOME / SELF CARE / HOMELESS Is pt being admited?: No Does the pt Need Aspirin: No Condition: Stable Instructions: Otitis Media, Adult, [id number], COVID-19, Bacterial Pneumonia (ED) Additional Instructions: Please take medication as prescribed. Increase your fluid intake. Follow-up with a primary care doctor. Return to emergency room for any new or worse symptoms. Recommend for you to self quarantine for 10 days from onset of your symptoms. Prescriptions: Amoxicillin/Potassium Clav [Augmentin 875-125 Tablet] 1 each PO BID 10 Days #20 tablet predniSONE [Deltasone] 40 mg PO DAILY 5 Days #10 tablet Albuterol Sulfate [Proventil Hfa] 1 - 2 puff IH TID PRN #1 hfa.aer.ad PRN Reason: shortness of breath/wheezing Azithromycin [Zithromax] 250 mg PO QDAY 5 Days #6 tablet Referrals: GEORGE GUSMAN MD [Staff Physician] - 3-5 Days [facility] [Provider Group] - 3-5 Days Time of Disposition: 16:17 Print Language: BOTSWANAN
--- NOTE | 2021-03-19 16:10 | XRay Report ---
CHEST 2 VIEWS INDICATION / CLINICAL INFORMATION: cough, fever, wheezing. COMPARISON: None available. FINDINGS: SUPPORT DEVICES: None. HEART / MEDIASTINUM: No significant abnormality. LUNGS / PLEURA: Mild interstitial pulmonary opacities are present bilaterally. No areas of consolidat ion. No pleural effusion. No pneumothorax. ADDITIONAL FINDINGS: No significant additional findings. IMPRESSION: 1. Mild bilateral interstitial pulmonary opacities. The overall appearance is certainly concerning fo r viral pneumonia and clinical correlation is recommended. Signer Name: Iman Solares MD Signed: 03/19/2021 4:06 PM Workstation Name: [id number]
== END 2021-03-19 16:45 | disposition home or self-care (01) ==
LOC: ED 10:42
DX: J18.9 Pneumonia, unspecified organism (principal); H66.90 Otitis media, unspecified, unspecified ear; Z20.822 Contact with and (suspected) exposure to COVID-19
CPT/HCPCS: 71046; 94640; 96372; 99283; J1100

== ENCOUNTER 2021-10-19 10:24 | Emergency (ER) | payer BC ==
--- NOTE | 2021-10-19 11:00 | Emergency Department Report ---
ED Abdominal Pain HPI - General Chief Complaint: Abdominal Pain Stated Complaint: ABD PAIN PUI?: No Time Seen by Provider: 10/19/21 10:48 Source: patient Mode of arrival: Ambulatory Limitations: No Limitations - History of Present Illness Initial Comments: Patient is a 21-year-old female that comes to the emergency room complaining of acute on chronic abdominal pain. She has not followed with PCP or [facility]. She denies nausea vomiting or diarrhea. Denies constipation. Denies fever or chills. Patient has no dysuria or vaginal discharge. Patient states she has been having this pain intermittently since July. The pain is suprapubic, sharp in nature and comes and goes. MD Complaint: abdominal pain -: Gradual, month(s) Location: suprapubic Associated Symptoms: denies other symptoms. denies: nausea, vomiting, diarrhea, fever, chills, constipation, dysuria, hematemesis, hematochezia, melena, hematuria, anorexia, syncope - Related Data Previous Rx's Medication Instructions Recorded Last Taken Type predniSONE [Deltasone] 40 mg PO QDAY 5 Days #10 tab 01/08/20 Unknown Rx Acyclovir 400 mg PO Q8H #21 tablet 07/27/20 Unknown Rx Doxycycline Hyclate [Doxycycline 100 mg PO Q12HR #14 tab 07/27/20 Unknown Rx Hyclate TAB] metroNIDAZOLE [Flagyl] 500 mg PO Q12HR #14 tab 07/27/20 Unknown Rx Albuterol Sulfate [Proventil Hfa] 1 - 2 puff IH TID PRN #1 hfa.aer.ad 03/19/21 Unknown Rx Amoxicillin/Potassium Clav 1 each PO BID 10 Days #20 tablet 03/19/21 Unknown Rx [Augmentin 875-125 Tablet] Azithromycin [Zithromax] 250 mg PO QDAY 5 Days #6 tablet 03/19/21 Unknown Rx predniSONE [Deltasone] 40 mg PO DAILY 5 Days #10 tablet 03/19/21 Unknown Rx Allergies Allergy/AdvReac Type Severity Reaction Status Date / Time No Known Allergies Allergy Verified 03/19/21 12:35 ED Review of Systems ROS: Stated complaint: ABD PAIN Other details as noted in HPI Comment: All other systems reviewed and negative ED Past Medical Hx - Past Medical History Previous Medical History?: Yes Hx Hypertension: No Hx Congestive Heart Failure: No Hx Diabetes: No Hx Deep Vein Thrombosis: No Hx Renal Disease: No Hx Sickle Cell Disease: No Hx Seizures: No Hx Asthma: No Hx COPD: No Hx HIV: No Additional medical history: HPV and genital herpes - Surgical History Past Surgical History?: No - Family History Family history: no significant - Social History Smoking Status: Never Smoker Substance Use Type: None - Medications Home Medications: Home Medications Medication Instructions Recorded Confirmed Last Taken Type predniSONE [Deltasone] 40 mg PO QDAY 5 Days #10 tab 01/08/20 Unknown Rx Acyclovir 400 mg PO Q8H #21 tablet 07/27/20 Unknown Rx Doxycycline Hyclate [Doxycycline 100 mg PO Q12HR #14 tab 07/27/20 Unknown Rx Hyclate TAB] metroNIDAZOLE [Flagyl] 500 mg PO Q12HR #14 tab 07/27/20 Unknown Rx Albuterol Sulfate [Proventil Hfa] 1 - 2 puff IH TID PRN #1 hfa.aer.ad 03/19/21 Unknown Rx Amoxicillin/Potassium Clav 1 each PO BID 10 Days #20 tablet 03/19/21 Unknown Rx [Augmentin 875-125 Tablet] Azithromycin [Zithromax] 250 mg PO QDAY 5 Days #6 tablet 03/19/21 Unknown Rx predniSONE [Deltasone] 40 mg PO DAILY 5 Days #10 tablet 03/19/21 Unknown Rx ED Physical Exam - General Limitations: No Limitations General appearance: alert, in no apparent distress - Head Head exam: Present: atraumatic, normocephalic - Eye Eye exam: Present: normal appearance - ENT ENT exam: Present: mucous membranes moist - Neck Neck exam: Present: normal inspection - Respiratory Respiratory exam: Present: normal lung sounds bilaterally. Absent: respiratory distress - Cardiovascular Cardiovascular Exam: Present: regular rate, normal rhythm. Absent: systolic murmur, diastolic murmur, rubs, gallop - GI/Abdominal GI/Abdominal exam: Present: soft, normal bowel sounds - Extremities Exam Extremities exam: Present: normal inspection - Back Exam Back exam: Present: normal inspection - Neurological Exam Neurological exam: Present: alert, oriented X3 - Psychiatric Psychiatric exam: Present: normal affect, normal mood - Skin Skin exam: Present: warm, dry, intact, normal color. Absent: rash ED Course - Reevaluation(s) Reevaluation #1: 10/19/21 13:12 Patient is off her herpes medicine she states that she thought maybe the medicine was causing her pain. She has no active output ED Medical Decision Making - Radiology Data Radiology results: report reviewed, image reviewed See report - Medical Decision Making Vital signs normal as documented by the RN. Patient is ambulatory and [id number]. She is taking p.o. Labs 10/19/21 Unknown Urine Color Yellow Urine Turbidity Clear Urine pH 6.0 Ur Specific [place] 1.019 Urine Protein <15 mg/dl Urine Glucose (UA) Neg Urine Ketones Neg Urine Blood Sm Urine Nitrite Neg Ur Reducing Substances Not Reportable Urine Bilirubin Neg Urine Ictotest Not Reportable Urine Urobilinogen < 2.0 Ur Leukocyte Esterase Neg Urine WBC (Auto) 1.0 Urine RBC (Auto) 2.0 U Epithel Cells (Auto) 5.0 Uric Acid Crystals 1+ Urine Mucus 2+ Urine HCG, Qual Negative test negative. UA noted. Ultrasound noted. I have discussed the findings with the patient. Patient being discharged home with discharge plan of care including diet, activity, medications and follow-up. She verbalizes understanding. - Differential Diagnosis Rule out UTI, , ovarian cyst Critical care attestation.: If time is entered above; I have spent that time in minutes in the direct care of this critically ill patient, excluding procedure time. ED Disposition Clinical Impression: Ovarian cyst Disposition: 01 HOME / SELF CARE / HOMELESS Is pt being admited?: No Does the pt Need Aspirin: No Condition: Stable Instructions: Ovarian Cyst, [id number], Abdominal Pain (ED) Additional Instructions: Follow-up with [facility] Referrals: GEORGE GUSMAN MD [Primary Care Provider] - 3-5 Days SILVINO TOURE MD [Staff Physician] - 3-5 Days Time of Disposition: 13:01
[2021-10-19 11:38] LABS: HCG Qualitative,Urine Negative (Negative)
[2021-10-19 11:46] LABS: Bilirubin,Urine NEG (Negative); Blood,Urine SM (Negative); Color,Urine Yellow (Yellow); Mucus,Urine 2+ /HPF; Protein,Urine <15 mg/dL mg/dL (Negative); Urobilinogen,Urine < 2.0 mg/dL (<2.0)
--- NOTE | 2021-10-19 12:45 | Ultrasound Report ---
ULTRASOUND PELVIS INDICATION / CLINICAL INFORMATION: pelvic pain. TECHNIQUE: Transabdominal and Transvaginal. Duplex Color Doppler used: Yes. COMPARISON: None available FINDINGS: UTERUS: Uterus measures 8.5 cm in length. The endometrial stripe measures 6 mm. No focal uterine abno rmalities are seen. RIGHT ADNEXA: There is a 3.3 cm complex cyst in the right ovary characteristic of a hemorrhagic cyst. Normal color Doppler blood flow. The right ovary measures 4.9 cm in length. LEFT ADNEXA: No significant ovarian cyst or mass. Normal color Doppler blood flow. The left ovary jarrod sures 3.2 cm in length. URINARY BLADDER: No significant abnormality. FREE FLUID: There is a minimal amount of free fluid in the cul-de-sac ADDITIONAL FINDINGS: None. IMPRESSION: 1. There is a 3.3 cm complex cyst in the right ovary likely representing a hemorrhagic cyst. Signer Name: Manjinder Crowley MD Signed: 10/19/2021 12:41 PM Workstation Name: [id number]
[2021-10-19 13:14] VITALS: BP 124/78
== END 2021-10-19 13:13 | disposition home or self-care (01) ==
LOC: ED 10:24
DX: N83.209 Unspecified ovarian cyst, unspecified side (principal)
CPT/HCPCS: 76830; 76856; 81001; 81025; 99284